=== PATIENT | male | born 1950 ===

== ENCOUNTER → 2016-12-22 | Outpatient (CLI) | payer OTHER ==
[2016-12-22 18:00] LABS: BASO % 0.4 %; BASO ABS # 0.04 K/uL (0-0.2); COMPLETE YES; EOS % 0.7 %; HEMATOCRIT 44.4 % (42-52); IG% 0.2 %; LYMPH % 20.1 %; LYMPH ABS # 1.93 K/uL (1.2-3.4); MEAN CELL VOLUME 92.9 fL (80-100); MEAN CORPUSCULAR HEMOGLOBIN 32.2 pg (25-34); MEAN CORPUSCULAR HGB CONC 34.7 g/dl (32-36); MONO % 10.4 %; NEUT % 68.2 %; PLATELET COUNT 204 K/uL (130-400); RED BLOOD COUNT 4.78 M/uL (4.7-6.1); WHITE BLOOD COUNT 9.62 K/uL (4.8-10.8)
[2016-12-22 18:18] LABS: ALKALINE PHOSPHATASE 80 U/L (45-117); ALT/SGPT 27 U/L (12-78); BLOOD UREA NITROGEN 24 mg/dl (7-18); BUN/CREATININE RATIO 16.1 (10-20); CALCIUM 9.3 mg/dl (8.5-10.1); CARBON DIOXIDE 28 mmol/L (21-32); CHLORIDE 108 mmol/L (98-107); CHOLESTEROL 187 mg/dl (0-200); GLUCOSE 88 mg/dl (70-99); POTASSIUM 4.2 mmol/L (3.5-5.1); SODIUM 141 mmol/L (136-145)
[2016-12-22 18:26] LABS: ALB/GLOB RATIO 1.2 (0.9-2); AST/SGOT 27 U/L (15-37); CHOLESTEROL/HDL RATIO 3.7; HDL CHOLESTEROL 51 mg/dl; LDL CHOLESTEROL CALCULATED 89 mg/dl; TRIGLYCERIDES 236 mg/dl (0-150); VERY LOW DENSITY LIPOPROT CALC 47 mg/dl
== END | disposition home or self-care (01) ==
LOC: C.LABMFLN 10:14
PROVIDERS: ATTEND Family Medicine
DX: I10 Essential (primary) hypertension (principal); E78.5 Hyperlipidemia, unspecified; E55.9 Vitamin D deficiency, unspecified

== ENCOUNTER → 2016-12-27 | Outpatient (CLI) | payer OTHER ==
[2016-12-27 14:04] LABS: CALCIUM 9.4 mg/dl (8.5-10.1)
[2016-12-27 14:06] LABS: BLOOD UREA NITROGEN 17 mg/dl (7-18); BUN/CREATININE RATIO 14.3 (10-20); CARBON DIOXIDE 25 mmol/L (21-32); CHLORIDE 108 mmol/L (98-107); GLUCOSE 89 mg/dl (70-99); POTASSIUM 4.1 mmol/L (3.5-5.1); SODIUM 141 mmol/L (136-145)
[2016-12-27 14:07] LABS: PHOSPHORUS 2.4 mg/dl (2.5-4.9)
== END | disposition home or self-care (01) ==
LOC: C.LABMFLN 08:45
PROVIDERS: ATTEND Family Medicine
DX: I95.1 Orthostatic hypotension (principal)

== ENCOUNTER → 2017-01-19 | Outpatient (CLI) | payer OTHER | END | disposition home or self-care (01) | LOC: C.LABMFLN 13:42 | PROVIDERS: ATTEND Urology | DX: N40.1 Benign prostatic hyperplasia with lower urinary tract symptoms (principal); N20.0 Calculus of kidney ==

== ENCOUNTER → 2017-04-06 | Outpatient (CLI) | payer OTHER ==
[2017-04-06 13:36] LABS: BLOOD UREA NITROGEN 26 mg/dl (7-18); BUN/CREATININE RATIO 20.1 (10-20); CALCIUM 8.8 mg/dl (8.5-10.1); CARBON DIOXIDE 27 mmol/L (21-32); CHLORIDE 108 mmol/L (98-107); GLUCOSE 100 mg/dl (70-99); POTASSIUM 4.1 mmol/L (3.5-5.1); SODIUM 140 mmol/L (136-145)
[2017-04-06 13:37] LABS: PHOSPHORUS 2.6 mg/dl (2.5-4.9)
== END | disposition home or self-care (01) ==
LOC: C.LABMFLN 08:21
PROVIDERS: ATTEND Family Medicine
DX: R60.0 Localized edema (principal)

== ENCOUNTER → 2017-12-23 | Outpatient (CLI) | payer OTHER ==
[2017-12-23 17:46] LABS: BASO % 0.7 %; BASO ABS # 0.05 K/uL (0-0.2); EOS % 2.2 %; EOS ABS # 0.15 K/uL (0-0.5); HEMATOCRIT 43.4 % (42-52); HEMOGLOBIN 14.9 g/dL (14.0-18.0); IG# 0.01 K/uL (0.00-0.02); LYMPH % 28.2 %; LYMPH ABS # 1.94 K/uL (1.2-3.4); MEAN CELL VOLUME 94.1 fL (80-100); MEAN CORPUSCULAR HEMOGLOBIN 32.3 pg (25-34); MEAN CORPUSCULAR HGB CONC 34.3 g/dl (32-36); MEAN PLATELET VOLUME 10.3 fL (7.4-10.4); MONO % 11.8 %; MONO ABS # 0.81 K/uL (0.11-0.59); NEUT ABS # 3.91 K/uL (1.4-6.5); PLATELET COUNT 209 K/uL (130-400); RED CELL DISTRIBUTION WIDTH CV 13.4 % (11.5-14.5); WHITE BLOOD COUNT 6.87 K/uL (4.8-10.8)
[2017-12-23 18:23] LABS: ALBUMIN 3.9 gm/dl (3.4-5.0); ALT/SGPT 19 U/L (12-78); AST/SGOT 26 U/L (15-37); BLOOD UREA NITROGEN 23 mg/dl (7-18); CARBON DIOXIDE 26 mmol/L (21-32); CREATININE 1.22 mg/dl (0.60-1.40); GLUCOSE 87 mg/dl (70-99); POTASSIUM 4.1 mmol/L (3.5-5.1); SODIUM 138 mmol/L (136-145)
[2017-12-23 18:28] LABS: ALKALINE PHOSPHATASE 63 U/L (45-117); TOTAL PROTEIN 7.7 gm/dl (6.4-8.2)
== END | disposition home or self-care (01) ==
LOC: C.LABMFLN 12:06
PROVIDERS: ATTEND Family Medicine
DX: N20.0 Calculus of kidney (principal); R26.9 Unspecified abnormalities of gait and mobility; R60.0 Localized edema; E55.9 Vitamin D deficiency, unspecified